=== PATIENT | female | born 1960 | race Caucasian/White ===

== ENCOUNTER 2017-07-08 20:36 | Inpatient (IN) | payer OTHER ==
[2017-07-08] VITALS (8 sets, daily range): BP systolic 185–254; BP diastolic 97–121; PULSE 59–69; RESP 20; TEMP 98.3; O2SAT 94–96
[~2017-07-08] VITALS: Ht 162.6 cm; Wt 78.5 kg
[~2017-07-08 20:36] MED LIST: HYDR-2768 PO; LORT5TAB PO; Z.0.NO CURRENT MEDS
--- NOTE | 2017-07-08 21:04 | PD ---
HPI Chief Complaint: Psychiatric Symptoms Time Seen by Provider: 20:48 Travel History International Travel<30 days: No Contact w/Intl Traveler<30days: No History of Present Illness HPI This is a 57-year-old female who presents to the emergency department under a Gudino act because she hasn't been taking care of herself. Her roommate says she 's not been getting out of bed, not leaving her room and not eating or drinking for the past month. Patient is unable to provide much history. PFSH Past Medical History Asthma: Yes Diminished Hearing: No Hypertension: Yes Menopausal: Yes Past Surgical History Other Surgery: Yes (LEFT FOOT GROWTH, LEFT AXILLA CYST) Social History Alcohol Use: No Tobacco Use: Yes (1.5 PPD) Substance Use: No Allergies-Medications (Allergen,Severity, Reaction): Coded Allergies: penicillin G (Unverified Allergy, Severe, HIVES, 07/08/17) Reported Meds & Prescriptions Reported Meds & Active Scripts Active Lortab 5/500 (Acetaminophen/Hydrocodone Bitart) 5 Mg/500 Mg Tab 1-2 Tab PO Q6HPRN Hctz (Hydrochlorothiazide) 25 Mg Tab 25 Mg PO DAILY Lortab 5/500 (Acetaminophen/Hydrocodone Bitart) 5 Mg/500 Mg Tab 1 Tab PO Q6HPRN FOR PAIN Reported No Current Meds (Miscellaneous Medication) Misc Review of Systems ROS Limitations: Altered Mental Status Physical Exam Narrative GENERAL: Disheveled SKIN: Dry with skin tenting, small area of focal erythema on the distal left tibia HEAD: Atraumatic. Normocephalic. EYES: Pupils equal and round. No injection or drainage. ENT: Moist mucous membranes NECK: Trachea midline. CARDIOVASCULAR: Regular rate and rhythm. No murmur appreciated. 2+ pitting edema of the left lower extremity. Left calf is more swollen than the right. RESPIRATORY: Clear to auscultation. Breath sounds equal bilaterally. GASTROINTESTINAL: Abdomen soft, non-tender, nondistended. MUSCULOSKELETAL: No obvious deformities. NEUROLOGICAL: Oriented to person but not place or time. No obvious cranial nerve deficits. Loss of left medial visual field and right temporal visual field. 4+/5 strength in both legs, 5/5 strength bilateral upper extremities, no ataxia PSYCHIATRIC: Appropriate mood and affect; insight and judgment normal. Data Data Last Documented VS Vital Signs Date Time Temp Pulse Resp B/P (MAP) Pulse Ox O2 Delivery O2 Flow Rate FiO2 07/08/17 22:25 63 20 245/108 (153) 96 07/08/17 21:15 98.3 Orders Orders Complete Blood Count With Diff (07/08/17 20:50) Comprehensive Metabolic Panel (07/08/17 20:50) ^ Insert Iv (07/08/17 20:50) Drug Screen, Random Urine (07/08/17 20:50) Alcohol (Ethanol) (07/08/17 20:50) Ct Brain W/O Iv Contrast(Rout) (07/08/17 ) Electrocardiogram (07/08/17 ) Creatine Kinase (Cpk) (07/08/17 21:08) Us Leg Venous Doppler (07/08/17 ) Urinalysis - C+S If Indicated (07/08/17 21:13) Cath For Specimen (07/08/17 21:13) Labetalol Inj (Trandate Inj) (07/08/17 22:00) Admit Order (Ed Use Only) (07/08/17 22:31) Labs Laboratory Tests Test 07/08/17 21:00 07/08/17 21:45 White Blood Count 8.7 TH/MM3 Red Blood Count 5.39 MIL/MM3 Hemoglobin 14.8 GM/DL Hematocrit 44.6 % Mean Corpuscular Volume 82.9 FL Mean Corpuscular Hemoglobin 27.5 PG Mean Corpuscular Hemoglobin Concent 33.1 % Red Cell Distribution Width 13.3 % Platelet Count 353 TH/MM3 Mean Platelet Volume 7.2 FL Neutrophils (%) (Auto) 47.2 % Lymphocytes (%) (Auto) 39.8 % Monocytes (%) (Auto) 8.8 % Eosinophils (%) (Auto) 3.4 % Basophils (%) (Auto) 0.8 % Neutrophils # (Auto) 4.1 TH/MM3 Lymphocytes # (Auto) 3.5 TH/MM3 Monocytes # (Auto) 0.8 TH/MM3 Eosinophils # (Auto) 0.3 TH/MM3 Basophils # (Auto) 0.1 TH/MM3 CBC Comment DIFF FINAL Differential Comment Blood Urea Nitrogen 18 MG/DL Creatinine 1.12 MG/DL Random Glucose 90 MG/DL Total Protein 8.0 GM/DL Albumin 3.3 GM/DL Calcium Level 9.8 MG/DL Alkaline Phosphatase 102 U/L Aspartate Amino Transf (AST/SGOT) 19 U/L Alanine Aminotransferase (ALT/SGPT) 17 U/L Total Bilirubin 0.5 MG/DL Sodium Level 142 MEQ/L Potassium Level 3.8 MEQ/L Chloride Level 108 MEQ/L Carbon Dioxide Level 26.4 MEQ/L Anion Gap 8 MEQ/L Estimat Glomerular Filtration Rate 50 ML/MIN Ethyl Alcohol Level LESS THAN 3 MG/DL Urine Opiates Screen NEG Urine Barbiturates Screen NEG Urine Amphetamines Screen NEG Urine Benzodiazepines Screen NEG Urine Cocaine Screen NEG Urine Cannabinoids Screen NEG MDM Medical Decision Making Medical Screen Exam Complete: Yes Emergency Medical Condition: Yes Interpretation(s) Febrile, no tachycardia, hypertensive No leukocytosis Electrolytes are reassuring Urine drug screen is negative Alcohol is negative Last 24 hours Impressions Lower Extremity Ultrasound 07/08/17 0000 Signed Impressions: Service Date/Time: Saturday, July 08, 2017 21:24 - CONCLUSION: Negative exam with no evidence of deep venous thrombosis. Zander Lucas MD Head CT 07/08/17 0000 Signed Impressions: Service Date/Time: Saturday, July 08, 2017 21:17 - CONCLUSION: 1. Low attenuation edema involving the left occipital lobe and deep white matter of the left temporal and parietal lobes is consistent with subacute infarction. 2. No acute hemorrhage. 3. Old lacunar infarcts in right basal ganglia. Zander Lucas MD Differential Diagnosis Ischemic stroke, hemorrhagic stroke, electrolyte abnormality, urinary tract infection, substance intoxication Narrative Course This is a 57-year-old female who presents to the emergency department with confusion. She also has a focal visual field loss. She is placed on a monitor and an IV was established. Labs are obtained which were reassuring. Patient has evidence of edema and a subacute infarct in the occipital and parietal lobe on the left consistent with her visual field deficit. Patient's Gudino act was lifted as it is inappropriate and she presents with a medical issue. Patient Will be admitted for stroke evaluation. She is also quite hypertensive and was given IV labetalol the emergency department. Physician Communication Physician Communication Discussed with Dr. Winchester Diagnosis Primary Impression: Stroke Qualified Codes: I63.9 - Cerebral infarction, unspecified Additional Impression: Hypertensive urgency Admitting Information Admitting Physician Requests: Admit Brionna Roper MD Jul 08, 2017 21:03
[2017-07-08 21:16] LABS: AUTOMATED NEUTROPHIL # 4.1 TH/MM3 (1.8-7.7); BASOPHIL # 0.1 TH/MM3 (0-0.2); BASOPHIL % 0.8 % (0.0-2.0); EOSINOPHIL # 0.3 TH/MM3 (0-0.4); EOSINOPHIL % 3.4 % (0.0-4.0); HEMATOCRIT 44.6 % (35.0-46.0); HEMO FLAGS DIFF FINAL; LYMPH % 39.8 % (9.0-44.0); LYMPHOCYTE # 3.5 TH/MM3 (1.0-4.8); MEAN CELL VOLUME 82.9 FL (80.0-100.0); MEAN CORPUSCULAR HEMOGLOBIN 27.5 PG (27.0-34.0); MEAN CORPUSCULAR HGB CONC 33.1 % (32.0-36.0); MONO % 8.8 % (0.0-8.0); NEUT % 47.2 % (16.0-70.0); PLATELET COUNT 353 TH/MM3 (150-450); RED BLOOD COUNT 5.39 MIL/MM3 (4.00-5.30); RED CELL DISTRIBUTION WIDTH 13.3 % (11.6-17.2); WHITE BLOOD COUNT 8.7 TH/MM3 (4.0-11.0)
[2017-07-08 21:31] LABS: ALT (GPT) 17 U/L (10-53); ANION GAP 8 MEQ/L (5-15); AST (GOT) 19 U/L (15-37); BICARBONATE 26.4 MEQ/L (21.0-32.0); BLOOD UREA NITROGEN 18 MG/DL (7-18); CHLORIDE 108 MEQ/L (98-107); GLOMERULAR FILTRATION RATE 50 ML/MIN (>89); POTASSIUM 3.8 MEQ/L (3.5-5.1); SODIUM (NA) 142 MEQ/L (136-145)
[2017-07-08 21:34] LABS: ALKALINE PHOSPHATASE 102 U/L (45-117); TOTAL BILIRUBIN ADULT 0.5 MG/DL (0.2-1.0)
--- NOTE | 2017-07-08 21:38 | RADRPT ---
EXAM DATE/TIME: 07/08/2017 21:17 [facility] COMPARISON: No previous studies available for comparison. INDICATIONS : Altered mental status. RADIATION DOSE: 28.70 CTDIvol (mGy) MEDICAL HISTORY : Hypertension. SURGICAL HISTORY : None. ENCOUNTER: Initial ACUITY: 1 day PAIN SCALE: Non-responsive LOCATION: cranial TECHNIQUE: Multiple contiguous axial images were obtained of the head. Using automated exposure control and adj ustment of the mA and/or kV according to patient size, radiation dose was kept as low as reasonably a chievable to obtain optimal diagnostic quality images. DICOM format image data is available electro nically for review and comparison. FINDINGS: Low density edema is noted involving the left occipital lobe and deep white matter of the left t emporal and parietal lobes. There is a small old lacunar infarcts in the right basal ganglia. There i s mild atrophic change with sulcal and ventricular prominence. There is mild cerebellar atrophy. The posterior fossa and brainstem are otherwise unremarkable. Bone windows demonstrate no acute abnormali ty. CONCLUSION: 1. Low attenuation edema involving the left occipital lobe and deep white matter of the left temporal and parietal lobes is consistent with subacute infarction. 2. No acute hemorrhage. 3. Old lacunar infarcts in right basal ganglia. Zander Lucas MD on July 08, 2017 at 21:28 Board Certified Radiologist. This report was verified electronically.
--- NOTE | 2017-07-08 21:47 | RADRPT ---
EXAM DATE/TIME: 07/08/2017 21:24 [facility] COMPARISON: No previous studies available for comparison. INDICATIONS : Left leg redness. MEDICAL HISTORY : Hypertension. Asthma. SURGICAL HISTORY : Left foot growth. Left axillary cyst removed. ENCOUNTER: Initial ACUITY: 1 day PAIN SCORE: 1/10 LOCATION: Left leg. TECHNIQUE: Venous ultrasound of the leg was performed from the inguinal ligament to the proximal calf. Real[place] e, color Doppler and spectral tracing, compression and augmentation techniques were used. FINDINGS: There is normal compressibility of the deep venous system from the inguinal region to the proximal ca lf. No echogenic clot is seen in the lumen of the common femoral, femoral, popliteal, and posterior tibial veins. There is a normal response of the venous system to proximal and distal augmentation an d respiration. CONCLUSION: Negative exam with no evidence of deep venous thrombosis. Zander Lucas MD on July 08, 2017 at 21:45 Board Certified Radiologist. This report was verified electronically.
[2017-07-08 21:49] LABS: ALCOHOL LESS THAN 3 MG/DL (0-5)
[2017-07-08] MEDS ORDERED: LABETALOL HCL 100 MG/20 ML VIAL IV PUSH ONE (22:00)
[2017-07-08 22:59] LABS: BLOOD, URINE NEG (NEG); GLUCOSE,URINE NEG (NEG); KETONE, URINE NEG (NEG); MUCUS URINE FEW /lpf (OCC); NITRITE,URINE NEG (NEG); SQUAMOUS EPITHELIAL CELL URINE <1 /hpf (0-5); URINE COLOR YELLOW (YELLW/STRAW)
[2017-07-08 23:00] LABS: COMMENT (UR) CATH-CULT NOT IND; CULTURE IF INDICATED CATH CULTURE NOT IND
[2017-07-08] MEDS ORDERED: hydrALAZINE HCL 20 MG/ML VIAL IV PUSH ONE (23:00)
[2017-07-08] MEDS ORDERED: SODIUM CHLOR 0.9% 1000 ML INJ 1,000 ML IV SCH (23:33)
[2017-07-08] MEDS ORDERED: ENALAPRILAT 1.25 MG/ML VIAL IV PRN (23:45)
[2017-07-08] MEDS: HEPARIN SODIUM - SQ 10,000 UNITS/ML VIAL SQ SCH (23:45)
[2017-07-08] MEDS ORDERED: GLUCAGON 1 MG/ML VIAL OTHER PRN (23:45)
[2017-07-08] MEDS ORDERED: DEXTROSE 50% IN WATER 50 ML VIAL(D50) IV PUSH PRN (23:45)
[2017-07-09] VITALS (27 sets, daily range): BP systolic 165–198; BP diastolic 74–100; PULSE 64–85; RESP 16–20; TEMP 97.3–98.5; O2SAT 93–98
[2017-07-09] MEDS ORDERED: hydrALAZINE HCL 20 MG/ML VIAL IV PUSH ONE (00:15)
--- NOTE | 2017-07-09 01:23 | HHI.HP ---
HPI Service [facility] Primary Care Physician Unknown Admission Diagnosis stroke, hypertensive urgency Diagnoses: Chief Complaint: Brought under Gudino act, lack caring for herself Travel History International Travel<30 Days: No Contact w/Intl Traveler <30 Da: No Traveled to Known Affected Are: No History of Present Illness 57 years old female presented to the ED under Gudino act after she hasn't been taking care of herself, her roommate reported that the patient has not been getting out of bed not leaving her room not eating or drinking for the past month, patient was able to recognize her name and the place but not the time and in general she is very poor historian and not able to maintain any other information or history from her. She looks comfortable she denied any pain. EKG reviewed showed normal sinus rhythm. Most of the information obtained from ED document Review of Systems ROS Limitations: Poor Historian Past Family Social History Past Medical History Asthma Hypertension Left foot growth/left axilla cyst Past Surgical History As above Allergies: Coded Allergies: penicillin G (Unverified Allergy, Severe, HIVES, 07/08/17) Family History Unobtainable Social History The ED documents 1-1/2 act per day no illicit drug or alcohol abuse Physical Exam Vital Signs Vital Signs Date Time Temp Pulse Resp B/P (MAP) Pulse Ox O2 Delivery O2 Flow Rate FiO2 07/09/17 00:57 66 20 198/86 (123) 97 07/09/17 00:26 69 20 182/86 (118) 97 07/08/17 23:57 65 20 219/97 (137) 07/08/17 23:20 61 20 215/98 (137) 96 07/08/17 22:51 63 20 230/121 (157) 95 07/08/17 22:39 59 20 218/97 (137) 96 07/08/17 22:25 63 20 245/108 (153) 96 07/08/17 21:47 254/114 (160) 07/08/17 21:15 98.3 69 20 185/116 (139) 94 07/08/17 21:12 98.3 69 20 185/116 (139) 94 Physical Exam GENERAL: This is a well-nourished, well-developed patient, in no apparent distress. SKIN: No rashes, ecchymoses or lesions. Cool and dry. HEAD: Atraumatic. Normocephalic. No temporal or scalp tenderness. EYES: Pupils equal round and reactive. Extraocular motions intact. No scleral icterus. No injection or drainage. ENT: Nose without bleeding, purulent drainage or septal hematoma. Throat without erythema, tonsillar hypertrophy or exudate. Uvula midline. Airway patent. NECK: Trachea midline. No JVD or lymphadenopathy. Supple, nontender, no meningeal signs. CARDIOVASCULAR: Regular rate and rhythm without murmurs, gallops, or rubs. RESPIRATORY: Clear to auscultation. Breath sounds equal bilaterally. No wheezes , rales, or rhonchi. GASTROINTESTINAL: Abdomen soft, non-tender, nondistended. No hepato-splenomegaly , or palpable masses. No guarding. MUSCULOSKELETAL: Extremities without clubbing, cyanosis, or edema. No joint tenderness, effusion, or edema noted. No calf tenderness. Negative Homans sign bilaterally. NEUROLOGICAL: Awake and alert. Cranial nerves II through XII intact. Motor strength 4 out of 5 in all extremities and sensory grossly within normal limits. Normal speech. Laboratory Laboratory Tests Test 07/08/17 21:00 07/08/17 21:45 White Blood Count 8.7 Red Blood Count 5.39 Hemoglobin 14.8 Hematocrit 44.6 Mean Corpuscular Volume 82.9 Mean Corpuscular Hemoglobin 27.5 Mean Corpuscular Hemoglobin Concent 33.1 Red Cell Distribution Width 13.3 Platelet Count 353 Mean Platelet Volume 7.2 Neutrophils (%) (Auto) 47.2 Lymphocytes (%) (Auto) 39.8 Monocytes (%) (Auto) 8.8 Eosinophils (%) (Auto) 3.4 Basophils (%) (Auto) 0.8 Neutrophils # (Auto) 4.1 Lymphocytes # (Auto) 3.5 Monocytes # (Auto) 0.8 Eosinophils # (Auto) 0.3 Basophils # (Auto) 0.1 CBC Comment DIFF FINAL Differential Comment Blood Urea Nitrogen 18 Creatinine 1.12 Random Glucose 90 Total Protein 8.0 Albumin 3.3 Calcium Level 9.8 Alkaline Phosphatase 102 Aspartate Amino Transf (AST/SGOT) 19 Alanine Aminotransferase (ALT/SGPT) 17 Total Bilirubin 0.5 Sodium Level 142 Potassium Level 3.8 Chloride Level 108 Carbon Dioxide Level 26.4 Anion Gap 8 Estimat Glomerular Filtration Rate 50 Total Creatine Kinase 39 Ethyl Alcohol Level LESS THAN 3 Urine Color YELLOW Urine Turbidity CLEAR Urine pH 7.0 Urine Specific [place] 1.017 Urine Protein TRACE Urine Glucose (UA) NEG Urine Ketones NEG Urine Occult Blood NEG Urine Nitrite NEG Urine Bilirubin NEG Urine Urobilinogen LESS THAN 2.0 Urine Leukocyte Esterase TRACE Urine RBC 1 Urine WBC 6 Urine Squamous Epithelial Cells <1 Urine Mucus FEW Microscopic Urinalysis Comment CATH-CULT NOT IND Urine Opiates Screen NEG Urine Barbiturates Screen NEG Urine Amphetamines Screen NEG Urine Benzodiazepines Screen NEG Urine Cocaine Screen NEG Urine Cannabinoids Screen NEG Result Diagram: 07/08/17 2100 07/08/17 2100 Imaging Last Impressions Lower Extremity Ultrasound 07/08/17 0000 Signed Impressions: Service Date/Time: Saturday, July 08, 2017 21:24 - CONCLUSION: Negative exam with no evidence of deep venous thrombosis. Zander Lucas MD Head CT 07/08/17 0000 Signed Impressions: Service Date/Time: Saturday, July 08, 2017 21:17 - CONCLUSION: 1. Low attenuation edema involving the left occipital lobe and deep white matter of the left temporal and parietal lobes is consistent with subacute infarction. 2. No acute hemorrhage. 3. Old lacunar infarcts in right basal ganglia. Zander Lucas MD Capalexi VTE Risk Assessment Caprini VTE Risk Assessment: Mod/High Risk (score >= 2) Caprini Risk Assessment Model Point Value = 1 Point Value = 2 Point Value = 3 Point Value = 5 Age 41-60 Minor surgery BMI > 25 kg/m2 Swollen legs Varicose veins or History of unexplained or recurrent spontaneous Oral contraceptives or hormone replacement Sepsis (< 1 month) Serious lung disease, including pneumonia (< 1 month) Abnormal pulmonary function Acute myocardial infarction Congestive heart failure (< 1 month) History of inflammatory bowel disease Medical patient at bed rest Age 61-74 Arthroscopic surgery Major open surgery (> 45 min) Laparoscopic surgery (> 45 min) Malignancy Confined to bed (> 72 hours) Immobilizing plaster cast Central venous access Age >= 75 History of VTE Family history of VTE Factor V Leiden Prothrombin [id number] Lupus anticoagulant Anticardiolipin antibodies Elevated serum homocysteine Heparin-induced thrombocytopenia Other congenital or acquired thrombophilia Stroke (< 1 month) Elective arthroplasty Hip, pelvis, or leg fracture Acute spinal cord injury (< 1 month) Prophylaxis Regimen Total Risk Factor Score Risk Level Prophylaxis Regimen 0-1 Low Early ambulation 2 Moderate Order ONE of the following: *Sequential Compression Device (SCD) *Heparin 5000 units SQ BID 3-4 Higher Order ONE of the following medications: *Heparin 5000 units SQ TID *Enoxaparin/Lovenox 40 mg SQ daily (WT < 150 kg, CrCl > 30 mL/min) *Enoxaparin/Lovenox 30 mg SQ daily (WT < 150 kg, CrCl > 10-29 mL/min) *Enoxaparin/Lovenox 30 mg SQ BID (WT < 150 kg, CrCl > 30 mL/min) AND/OR *Sequential Compression Device (SCD) 5 or more Highest Order ONE of the following medications: *Heparin 5000 units SQ TID (Preferred with Epidurals) *Enoxaparin/Lovenox 40 mg SQ daily (WT < 150 kg, CrCl > 30 mL/min) *Enoxaparin/Lovenox 30 mg SQ daily (WT < 150 kg, CrCl > 10-29 mL/min) *Enoxaparin/Lovenox 30 mg SQ BID (WT < 150 kg, CrCl > 30 mL/min) AND *Sequential Compression Device (SCD) Assessment and Plan Assessment and Plan 57 years old female presented with Severe hypertensive emergency Change in mental status rule out stroke versus metabolic encephalopathy H/O ischemic stroke in the past Elevated creatinine DANA versus CKD History of hypertension DVT prophylaxis Plan: Admit for observation under telemetry Initiate stroke protocol, O2 to keep O2 sat above 90% Patient received labetalol and hydralazine in ED, I will give a stat hydralazine dose again blood pressure still end-systolic 90, hydralazine, and the labral when necessary, hold on beta naveen due to heart rate in the 60, goal systolic around 170 over the next 24 hours Carotid ultrasound bilaterally, 2-D echo, consult neurology, to fair MRI/MRA to the neurologist FLP in a.m., hemoglobin A1c SCD with heparin for DVT prophylaxis Discussed Condition With ED physician Verónica Winchester MD Jul 09, 2017 01:23
[2017-07-09] MEDS ORDERED: SKIN PROTECTANT PASTE 57 GM TUBE TOPICAL ONE (02:15)
[2017-07-09] MEDS: INSULIN ASPART SUPPLEMENTAL SCALE SQ SCH ×4 (05:44→20:44)
[2017-07-09] MEDS: HEPARIN SODIUM - SQ 10,000 UNITS/ML VIAL SQ SCH ×3 (09:31→23:40)
[2017-07-09 09:38] LABS: HDL CHOLESTEROL 33.2 MG/DL (40.0-60.0); LDL CHOLESTEROL 218 MG/DL (0-99)
--- NOTE | 2017-07-09 10:28 | HHI.PR ---
Subjective Remarks Follow-up hypertensive emergency/metabolic encephalopathy/acute mood disorder/ subacute infarct in the left occipital lobe 07/09/17-patient seen and examined, alert and oriented 1, confused but pleasant Objective Vitals Vital Signs Date Time Temp Pulse Resp B/P (MAP) Pulse Ox O2 Delivery O2 Flow Rate FiO2 07/09/17 10:15 69 07/09/17 09:43 78 07/09/17 08:15 77 07/09/17 07:41 98.5 68 18 188/97 (127) 95 07/09/17 07:41 78 07/09/17 06:00 78 07/09/17 05:00 76 07/09/17 04:52 77 16 170/88 (115) 97 07/09/17 04:00 76 07/09/17 03:04 98.3 85 20 179/93 (121) 96 07/09/17 03:00 79 07/09/17 01:44 73 20 165/74 (104) 97 07/09/17 01:29 76 20 165/ 98 07/09/17 00:57 66 20 198/86 (123) 97 07/09/17 00:26 69 20 182/86 (118) 97 07/08/17 23:57 65 20 219/97 (137) 07/08/17 23:20 61 20 215/98 (137) 96 07/08/17 22:51 63 20 230/121 (157) 95 07/08/17 22:39 59 20 218/97 (137) 96 07/08/17 22:25 63 20 245/108 (153) 96 07/08/17 21:47 254/114 (160) 07/08/17 21:15 98.3 69 20 185/116 (139) 94 07/08/17 21:12 98.3 69 20 185/116 (139) 94 I/O 07/08/17 07/08/17 07/08/17 07/09/17 07/09/17 07/09/17 07:00 15:00 23:00 07:00 15:00 23:00 Intake Total 381 ml Balance 381 ml Intake IV Total 381 ml # Voids 2 Result Diagram: 07/08/17 2100 07/08/17 2100 Imaging Last Impressions Lower Extremity Ultrasound 07/08/17 0000 Signed Impressions: Service Date/Time: [place], July 08, 2017 21:24 - CONCLUSION: Negative exam with no evidence of deep venous thrombosis. Zander Lucas MD Head CT 07/08/17 0000 Signed Impressions: Service Date/Time: Saturday, July 08, 2017 21:17 - CONCLUSION: 1. Low attenuation edema involving the left occipital lobe and deep white matter of the left temporal and parietal lobes is consistent with subacute infarction. 2. No acute hemorrhage. 3. Old lacunar infarcts in right basal ganglia. Zander Lucas MD Objective Remarks GENERAL: NAD SKIN: Warm and dry. HEAD: Normocephalic. EYES: No scleral icterus. No injection or drainage. NECK: Supple, trachea midline. No JVD or lymphadenopathy. CARDIOVASCULAR: Regular rate and rhythm without murmurs, gallops, or rubs. RESPIRATORY: Breath sounds equal bilaterally. No accessory muscle use. GASTROINTESTINAL: Abdomen soft, non-tender, nondistended. MUSCULOSKELETAL: No cyanosis, or edema. BACK: Nontender without obvious deformity. No CVA tenderness. A/P Problem List: (1) Stroke ICD Code: I63.9 - Cerebral infarction, unspecified Status: Acute (2) Hypertensive urgency ICD Code: I16.0 - Hypertensive urgency Status: Acute (3) Acute adjustment disorder with depressed mood ICD Code: F43.21 - Adjustment disorder with depressed mood (4) Respiratory failure ICD Code: J96.90 - Respiratory failure, unspecified, unspecified whether with hypoxia or hypercapnia Assessment and Plan 57-year-old female with Toxic metabolic encephalopathy Head CT with finding of subacute infarct in left occipital lobe Check EEG and monitor ammonia level Subacute infarct in the left occipital lobe Treated per stroke protocol Neuro consultation pending Treated with aspirin, Lipitor NIHSS, neuro check, monitor on telemetry Now permissive hypertension, IV Vasotec for SBP> to [address] noted and review with finding of subacute infarct in the left occipital lobe Carotid ultrasound pending Check brain MRI/MRA as well as EEG PT/OT consultation Check A1c, lipid profile Hypertensive emergency Secondary to subacute infarct, will allow for permissive hypertension Treat for SBP> 220 Acute mood disorder Psychiatry consultation DVT prophylaxis: Bilateral SCDs Problem Qualifiers (1) Stroke: Qualified Codes: I63.9 - Cerebral infarction, unspecified Kirill Garcia MD Jul 09, 2017 10:28
[2017-07-09] MEDS ORDERED: METOPROLOL TARTRATE 50 MG TAB PO SCH (10:30)
[2017-07-09] MEDS ORDERED: RESP: ALBUTEROL 2.5 MG/IPRATROPIUM 0.5 MG NEB (PRN) NEB (10:30)
[2017-07-09 11:07] LABS: HEMOGLOBIN A1a 1.1 %; HEMOGLOBIN A1b 1.4 %; HEMOGLOBIN Ao 85.2 %; HEMOGLOBIN F 0.2 %; HEMOGLOBIN LA1C 2.1 %; HEMOGLOBIN P3 4.1 %
--- NOTE | 2017-07-09 11:16 | HHI.PR ---
Addendum to Inpatient Note Addendum Reason: Additional Documentation Additional Information Suspected LLE cellulitis Start Levaquin 250mg IV daily Kirill Garcia MD Jul 09, 2017 11:16
[2017-07-09] MEDS: LABETALOL HCL 100 MG/20 ML VIAL IV PRN (12:23)
[2017-07-09] MEDS: NICOTINE 14 MG/24 HR PATCH T-DERMAL SCH (12:23)
--- NOTE | 2017-07-09 12:29 | MB ---
cc: TAMI TEMPLE M.D. DATE OF CONSULTATION 07/09/2017 DATE OF 1960 AGE [age] years old REASON FOR CONSULTATION Stroke. HISTORY OF PRESENT ILLNESS The patient is a 57-year-old woman. The history is taken from the chart. She is a poor historian. She was Gudino Acted because of inability to care for herself. Roommate reports she was not getting out of bed, not eating or drinking over the last month or so, confused. PAST MEDICAL HISTORY 1. History of asthma. 2. Hypertension. 3. Left foot growth. ALLERGY PENICILLIN. FAMILY HISTORY Unobtainable. PHYSICAL EXAMINATION VITAL SIGNS: Temperature is 98.5, pulse 69, respiratory rate 18, blood pressure 188/97. NEUROLOGICAL EXAMINATION: She awakens. Her speech seems to be intact. She follows simple commands. Her pupils are reactive. She can count fingers. Difficult to assess her visual bates; she does not follow the concept. She seems to move everything equally. There may be a slightly decreased residential door unit installer on the left compared to the right. She does not understand the concept to test for leg lag but she lifts both legs together. DTRs are 2+. Toes she withdraws. She does not follow cerebellar. Gait is withheld. IMAGING STUDIES CT showed a low attenuated area in the left occipital and left temporoparietal region, possible subacute infarct. There is also old right basal ganglionic infarct. IMPRESSION Possible stroke. RECOMMENDATIONS Recommend starting her on aspirin, blood pressure control, a statin. We will get an EEG, echo, carotid ultrasound, MRI and MRA, PT, OT, speech therapy, rehab consult and SCDs, DVT and Lovenox DVT prophylaxis. Depending on findings, further recommendations. MD VIKA Patel/STEWART /11:34 AM /12:19 PM
[2017-07-09] MEDS: LEVOFLOXACIN 250 MG PREMIX INJ 50 ML IV SCH (13:24)
--- NOTE | 2017-07-09 18:30 | RADRPT ---
EXAM DATE/TIME: 07/09/2017 17:50 [facility] COMPARISON: No previous studies available for comparison. INDICATIONS : Cerebrovascular accident. MEDICAL HISTORY : Hypertension. Asthma. SURGICAL HISTORY : None. ENCOUNTER: Initial ACUITY: 1 day PAIN SCORE: 0/10 LOCATION: Bilateral neck PEAK SYSTOLIC VELOCITIES (cm/sec): ICA/CCA RATIO: Right: 2.3 Left: 1.8 ICA: Right: 156 Left: 119 CCA: Right: 68 Left: 65 ECA: Right: 43 Left: 130 VERTEBRAL: Right: 91 antegrade Left: 88 antegrade Elevated flow velocities and ICA/CCA ratios have been found to correlate with increased degrees of vessel stenosis, calculated as percentage of diameter relative to a normal segment of distal ICA/CCA FINDINGS: RIGHT CAROTID: There is elevated ratios in the right carotid normal velocities and internal carotid. LEFT CAROTID: Borderline elevated ratio is present on the left with mildly elevated velocities. VERTEBRAL ARTERIES: Antegrade flow is seen in both vertebral arteries. MISCELLANEOUS: None. CONCLUSION: Abnormal carotid Doppler. Scattered calcific plaque is evident. MR angiography or CT angiography wo uld be of benefit. Luis Hua MD FACR on July 09, 2017 at 18:27 Board Certified Radiologist. This report was verified electronically.
--- NOTE | 2017-07-09 20:06 | EKG ---
Date Performed: 07/08/2017 Time Performed: 21:51:38 PTAGE: 57 years EKG: Sinus rhythm NORMAL ECG NO PREVIOUS TRACING DOCTOR: Erin Arshad Interpretating Date/Time 07/09/2017 20:03:45
[2017-07-09] MEDS: ATORVASTATIN 10 MG TAB PO SCH (20:43)
[2017-07-10] VITALS (22 sets, daily range): BP systolic 183–231; BP diastolic 95–120; PULSE 58–84; RESP 18; TEMP 97.7–98.1; O2SAT 93–98
[2017-07-10] MEDS: INSULIN ASPART SUPPLEMENTAL SCALE SQ SCH ×4 (06:14→21:00)
[2017-07-10] MEDS: HEPARIN SODIUM - SQ 10,000 UNITS/ML VIAL SQ SCH ×3 (06:15→23:27)
[2017-07-10 07:15] LABS: HDL CHOLESTEROL 37.9 MG/DL (40.0-60.0)
[2017-07-10] MEDS: ASPIRIN EC 81 MG TABEC PO SCH (08:29)
[2017-07-10] MEDS: LABETALOL HCL 100 MG/20 ML VIAL IV PRN (08:29)
[2017-07-10] MEDS: NICOTINE 14 MG/24 HR PATCH T-DERMAL SCH (08:31)
[2017-07-10] MEDS ORDERED: REMOVE OLD PATCH T-DERMAL SCH (09:00)
--- NOTE | 2017-07-10 11:03 | HHI.PR ---
Subjective Remarks Follow-up hypertensive emergency/metabolic encephalopathy/acute mood disorder/ subacute infarct in the left occipital lobe 07/09/17-patient seen and examined, alert and oriented 1, confused but pleasant 07/10/17-patient seen and examined, alert and oriented 2, afebrile. BP. Denies any complication with by mouth intake this morning Objective Vitals Vital Signs Date Time Temp Pulse Resp B/P (MAP) Pulse Ox O2 Delivery O2 Flow Rate FiO2 07/10/17 08:00 97.7 69 18 231/120 (157) 96 07/10/17 07:00 64 07/10/17 06:00 68 07/10/17 05:00 64 07/10/17 04:00 98.0 66 18 183/95 (124) 98 07/10/17 04:00 69 07/10/17 03:00 58 07/10/17 02:00 68 07/10/17 01:00 64 07/10/17 00:00 63 07/10/17 00:00 97.7 76 18 188/97 (127) 93 07/09/17 23:00 66 07/09/17 22:00 72 07/09/17 21:00 68 07/09/17 20:00 71 07/09/17 20:00 97.3 73 18 189/95 (126) 97 07/09/17 18:08 71 07/09/17 17:17 67 07/09/17 16:11 69 07/09/17 15:12 73 07/09/17 15:12 98.1 73 18 174/89 (117) 96 07/09/17 14:41 71 07/09/17 13:06 65 07/09/17 12:08 70 07/09/17 11:25 64 07/09/17 11:25 98.3 64 18 178/100 (126) 97 I/O 07/09/17 07/09/17 07/09/17 07/10/17 07/10/17 07/10/17 07:00 15:00 23:00 07:00 15:00 23:00 Intake Total 381 ml 720 ml Output Total 520 ml Balance 381 ml 720 ml -520 ml Intake Oral 720 ml IV Total 381 ml Output Urine Total 520 ml # Voids 2 3 1 Result Diagram: 07/08/17209907/08/17 2100 Imaging Last Impressions Carotid Artery Ultrasound 07/09/17 0000 Signed Impressions: Service Date/Time: Sunday, July 09, 2017 17:50 - CONCLUSION: Abnormal carotid Doppler. Scattered calcific plaque is evident. MR angiography or CT angiography would be of benefit. Luis Hua MD FACR Lower Extremity Ultrasound 07/08/17 0000 Signed Impressions: Service Date/Time: Saturday, July 08, 2017 21:24 - CONCLUSION: Negative exam with no evidence of deep venous thrombosis. Zander Lucas MD Head CT 07/08/17 0000 Signed Impressions: Service Date/Time: Saturday, July 08, 2017 21:17 - CONCLUSION: 1. Low attenuation edema involving the left occipital lobe and deep white matter of the left temporal and parietal lobes is consistent with subacute infarction. 2. No acute hemorrhage. 3. Old lacunar infarcts in right basal ganglia. Zander Lucas MD Objective Remarks GENERAL: NAD SKIN: Warm and dry. HEAD: Normocephalic. EYES: No scleral icterus. No injection or drainage. NECK: Supple, trachea midline. No JVD or lymphadenopathy. CARDIOVASCULAR: Regular rate and rhythm without murmurs, gallops, or rubs. RESPIRATORY: Breath sounds equal bilaterally. No accessory muscle use. GASTROINTESTINAL: Abdomen soft, non-tender, nondistended. MUSCULOSKELETAL: No cyanosis, or edema. BACK: Nontender without obvious deformity. No CVA tenderness. A/P Problem List: (1) Stroke ICD Code: I63.9 - Cerebral infarction, unspecified Status: Acute (2) Hypertensive urgency ICD Code: I16.0 - Hypertensive urgency Status: Acute (3) Acute adjustment disorder with depressed mood ICD Code: F43.21 - Adjustment disorder with depressed mood (4) Respiratory failure ICD Code: J96.90 - Respiratory failure, unspecified, unspecified whether with hypoxia or hypercapnia Status: Resolved (5) Cellulitis of left leg ICD Code: L03.116 - Cellulitis of left lower limb Assessment and Plan 57-year-old female with Toxic metabolic encephalopathy-resolved Head CT with finding of subacute infarct in left occipital lobe EEG pending and monitor ammonia level 31 Subacute infarct in the left occipital lobe Treated per stroke protocol Neuro consultation appreciated Treated with aspirin, Lipitor NIHSS, neuro check, monitor on telemetry d/c permissive hypertension, IV Vasotec for SBP> to [address] noted and review with finding of subacute infarct in the left occipital lobe Carotid ultrasound noted brain MRI/MRA as well as EEG pending PT/OT consultation A1c 5.4, lipid profile 201 Hypertensive emergency Discontinue permissive hypertension Resume hydrochlorothiazide 25 mg by mouth daily Left lower extremity cellulitis Continue current IV antibiotic Acute mood disorder Psychiatry consultation pending DVT prophylaxis: Bilateral SCDs Problem Qualifiers (1) Stroke: Qualified Codes: I63.9 - Cerebral infarction, unspecified Kirill Garcia MD Jul 10, 2017 11:03
[2017-07-10] MEDS: HYDROCHLOROTHIAZIDE 25 MG TAB PO SCH (11:15)
[2017-07-10] MEDS: LEVOFLOXACIN 250 MG PREMIX INJ 50 ML IV SCH (12:11)
[2017-07-10 12:13] LABS: HEMOGLOBIN A1a 0.9 %; HEMOGLOBIN A1b 1.4 %; HEMOGLOBIN Ao 79.2 %; HEMOGLOBIN F 0.2 %; HEMOGLOBIN LA1C 2.1 %; HEMOGLOBIN P3 5.2 %
--- NOTE | 2017-07-10 13:18 | PD.PSY.CON ---
Provisional Diagnosis Admission Date Jul 08, 2017 at 22:33 [place] I. Major neurocognitive disorder [place] II. Deferred History of Present Illness Service Psychiatry Consult Requested By Reason for Consult Shahab rose Primary Care Physician Unknown HPI The patient is a 57 years old woman, without any previous psychiatric history, who presented to the ED under Shahab rose after she hasn't been taking care of herself, her roommate reported that the patient has not been getting out of bed not leaving her room not eating or drinking for the past month, patient was able to recognize her name and the place but not the time and in general she is very poor historian and not able to maintain any other information or history from her. She looks comfortable she denied any pain. EKG reviewed showed normal sinus rhythm. Most of the information obtained from ED document. Head CT with finding of subacute infarct in left occipital lobe. Patient seen today for psychiatric evaluation. Patient reports good mood, she denies depressive symptoms, she denies anhedonia, denies hopelessness, she denies helplessness, she denies suicidal and homicidal ideation, she denies visual and auditory hallucinations. However, patient seems to be confused, with delays answers, blocking thought, some poverty of speech and apathy seems to be secondary to neurocognitive disorder. Past Family Social History Coded Allergies: penicillin G (Unverified Allergy, Severe, HIVES, 07/08/17) Active Scripts Hydrocodone-Acetaminophen (Lortab 5/500) 5 Mg/500 Mg Tab, 1 - 2 TAB PO Q6HPRN, # 24 Prov:Donovan Gracia MD 02/18/11 Hydrochlorothiazide (Hctz) 25 Mg Tab, 25 MG PO DAILY, #30 2 Refills Prov:Donovan Gracia MD 02/18/11 Hydrocodone-Acetaminophen (Lortab 5/500) 5 Mg/500 Mg Tab, 1 TAB PO Q6HPRN, #30 0 Refills FOR PAIN Prov:Josafat Danielle MD 02/05/09 Reported Medications Miscellaneous (No Current Meds) Misc 02/18/11 Current Medications Medications (Trade) Dose Ordered Sig/Ant Route Start Time Stop Time Status Last Admin (Vasotec Inj) 1.25 mg Q4H PRN IV 07/08/17 23:45 07/09/17 00:25 (Trandate Inj) 10 mg Q2H PRN IV 07/08/17 23:45 07/10/17 08:29 (Lipitor) 10 mg HS PO 07/09/17 21:00 07/09/17 20:43 (NovoLOG SUPPLEMENTAL SCALE) 1 ACHS SQ 07/09/17 07:00 (D50w (Vial) Inj) 50 ml UNSCH PRN IV PUSH 07/08/17 23:45 (Glucagon Inj) 1 mg UNSCH PRN OTHER 07/08/17 23:45 (Heparin Inj) 5,000 units Q8H SQ 07/08/17 23:45 07/10/17 06:15 (Apresoline Inj) 10 mg Q4H PRN IV PUSH 07/09/17 00:15 (Duoneb Neb) 1 ampule Q2HR NEB PRN NEB 07/09/17 10:30 (Habitrol 14 Mg Patch.24 Hr) 1 patch DAILY T-DERMAL 07/09/17 11:00 07/10/17 08:31 (Ecotrin Ec) 81 mg DAILY PO 07/10/17 09:00 07/10/17 08:29 Levofloxacin/ Dextrose 50 ml @ 50 mls/hr Q24H IV 07/09/17 12:00 07/10/17 12:11 (Hydrodiuril) 25 mg DAILY PO 07/10/17 11:15 07/10/17 11:15 (Lactinex) 1 tab Q12HR PO 07/10/17 21:00 Physical Exam Vital Signs Vital Signs Date Time Temp Pulse Resp B/P (MAP) Pulse Ox O2 Delivery O2 Flow Rate FiO2 07/10/17 12:00 95 07/10/17 08:00 97.7 69 18 231/120 (157) 07/09/17 10:20 21 I/O 07/10/17 07/10/17 07/11/17 08:00 16:00 00:00 Output Total 520 ml Balance -520 ml Lab Results Test 07/09/17 21:07 07/10/17 05:12 Hemoglobin A1c 5.2 % Ammonia 31 MCMOL/L Triglycerides Level 139 MG/DL Cholesterol Level 267 MG/DL LDL Cholesterol 201 MG/DL HDL Cholesterol 37.9 MG/DL Cholesterol/HDL Ratio 7.04 RATIO Mental Status Examination Appearance woman, age appearing, [facility], superficially cooperative, pleasant Speech: Hesitant, Slow Orientation: Person, Place Memory: Impaired (describe) Thought Process: Loose Association, Thought Blocking Thought Content: Unremarkable Attention and Concentration: Abnormal Suicidal Ideation: No Homicidal Ideation: No Previous Homicide Attempts: No Judgment: WNL Affect: Good Mood: Appropriate Motor Activity: Normal gait Assessment & Plan Problem List: (1) Major neurocognitive disorder due to vascular disease, without behavioral disturbance, severe ICD Codes: F01.50 - Vascular dementia without behavioral disturbance Assessment & Plan: On psychiatric evaluation today the patient presents with confusion, answer delay, blocking thought, some poverty of speech, just partially oriented, but able to denying mood symptoms, anxiety, psychosis, suicidal and homicidal ideation. Patient is future oriented, insightful about her cognitive impairment. She denies visual and auditory hallucinations. No agitation, no aggressive behavior, no hostility, no delusions, no paranoia present. Seems to me current memory problems and thought processes slowness is most probably related with sub acute brain infarct findings. She does not meet criteria for psychiatric admission at this moment. Gudino act will be lifted. Assessment & Plan Estimated LOS: Kevin Gifford MD Jul 10, 2017 13:18
--- NOTE | 2017-07-10 16:05 | MG ---
cc: ERLIN BRAR MD Lab No: Date: 07/10/2017 Age: Sex: F Race: ELECTROENCEPHALOGRAM RECORD NUMBER [id number] DATE OF 1960 HISTORY A 57-year-old with a history of Gudino Act, really not taking care of himself. Confusion. DESCRIPTION A posterior rhythm demonstrates 4-7 Hz activity, 20-60 microvolts with bursts of high amplitude theta occurring. Myogenic artifact in the frontal channels. apiculate looking waveforms. Limited driving with photic stimulation. Single lead EKG showing sinus rhythm. INTERPRETATION Mild encephalopathy in drowsy state. Apiculate looking waveforms this may be related to psychotropic medication effect. Clinical correlation. Erlin Brar MD MG/KK /3:37 PM /3:54 PM MTDCash
--- NOTE | 2017-07-10 16:10 | ECHRPT ---
Indication: CVA/TIA CONCLUSIONS The left ventricular systolic function is normal with an estimated ejection fraction in the range of 60-65%. Mild concentric left ventricular hypertrophy. Trace to mild aortic valve regurgitation. BP: 170 / 88 HR: 78 Rhythm: Sinus MEASUREMENTS (Male / Female) Normal Values Technical Quality:Fair 2D ECHO LV Diastolic Diameter PLAX 4.6 cm 4.2 - 5.9 / 3.9 - 5.3 cm LV Systolic Diameter PLAX 2.9 cm IVS Diastolic Thickness 1.2 cm 0.6 - 1.0 / 0.6 - 0.9 cm LVPW Diastolic Thickness 1.2 cm 0.6 - 1.0 / 0.6 - 0.9 cm LV Relative Wall Thickness 0.5 RV Internal Dim ED PLAX 2.4 cm LVOT Diameter 2.1 cm LA Systolic Diameter LX 3.5 cm 3.0 - 4.0 / 2.7 - 3.8 cm LV Ejection Fraction MOD 4C 62.7 % LV Cardiac Index MOD 4C 2762.4 cm/minm LV Ejection Fraction 4C AL 63.0 % LV Cardiac Index 4C AL 2883.7 cm/minm M-MODE Aortic Root Diameter MM 2.3 cm LA Systolic Diameter MM 3.0 cm LA Ao Ratio MM 1.3 AV Cusp Separation MM 1.6 cm DOPPLER AV Peak Velocity 193.0 cm/s AV Peak Gradient 14.9 mmHg AI Peak Velocity 557.0 cm/s AI Peak Gradient 124.1 mmHg AI Pressure Half Time 522.0 ms LVOT Peak Velocity 114.0 cm/s LVOT Peak Gradient 5.2 mmHg AV Area Cont Eq pk 2.0 cm MV Area PHT 3.2 cm Mitral E Point Velocity 79.5 cm/s Mitral A Point Velocity 80.0 cm/s Mitral E to A Ratio 1.0 LV E' Lateral Velocity 10.9 cm/s Mitral E to LV E' Lateral Ratio 7.3 LV E' Septal Velocity 6.2 cm/s Mitral E to LV E' Septal Ratio 12.7 TR Peak Velocity 261.0 cm/s TR Peak Gradient 27.2 mmHg PV Peak Velocity 117.0 cm/s PV Peak Gradient 5.5 mmHg FINDINGS LEFT VENTRICLE The left ventricular systolic function is normal with an estimated ejection fraction in the range of 60-65%. Normal left ventricular size. Mild concentric left ventricular hypertrophy. No regional wall motion abnormalities are present. RIGHT VENTRICLE Normal right ventricular size and systolic function. LEFT ATRIUM The left atrial size is normal. RIGHT ATRIUM The right atrial size is normal. ATRIAL SEPTUM Normal atrial septal thickness without atrial level shunting by limited color doppler interrogation. AORTA The aortic root and proximal ascending aorta are normal in size on limited imaging. MITRAL VALVE Structurally normal mitral valve. No mitral valve stenosis or regurgitation. Mild mitral annular calcification. AORTIC VALVE Trileaflet aortic valve. Aortic valve sclerosis is present. . Trace to mild aortic valve regurgitation. TRICUSPID VALVE Structurally normal tricuspid valve. No tricuspid valve stenosis. There is trace tricuspid valve regurgitation. The estimated pulmonary arterial pressure is 37 mmHg. PULMONARY VALVE The pulmonary valve is not well visualized. VESSELS The inferior vena cava is normal in size. PERICARDIUM No pericardial effusion. Oits Calvin DO (Electronically Signed) Final Date:10 July 2017 16:09
[2017-07-10] MEDS: ATORVASTATIN 10 MG TAB PO SCH (23:27)
[2017-07-10] MEDS: LACTOBACILLUS ACIDOPHILUS TAB PO SCH (23:27)
[2017-07-11] VITALS (25 sets, daily range): BP systolic 88–195; BP diastolic 64–119; PULSE 65–92; RESP 18–20; TEMP 97.3–98.5; O2SAT 95–98
[2017-07-11] MEDS: LABETALOL HCL 100 MG/20 ML VIAL IV PRN (01:06)
[2017-07-11] MEDS: hydrALAZINE HCL 20 MG/ML VIAL IV PUSH PRN ×2 (01:07→21:30)
[2017-07-11] MEDS: INSULIN ASPART SUPPLEMENTAL SCALE SQ SCH ×3 (07:00→16:00)
[2017-07-11] MEDS: HYDROCHLOROTHIAZIDE 25 MG TAB PO SCH (10:30)
[2017-07-11] MEDS: ASPIRIN EC 81 MG TABEC PO SCH (10:31)
[2017-07-11] MEDS: LACTOBACILLUS ACIDOPHILUS TAB PO SCH ×2 (10:31→21:28)
[2017-07-11] MEDS: NICOTINE 14 MG/24 HR PATCH T-DERMAL SCH (10:32)
[2017-07-11] MEDS: HEPARIN SODIUM - SQ 10,000 UNITS/ML VIAL SQ SCH ×2 (10:33→17:13)
--- NOTE | 2017-07-11 10:56 | HHI.PR ---
Subjective Remarks Follow-up hypertensive emergency/metabolic encephalopathy/acute mood disorder/ subacute infarct in the left occipital lobe 07/09/17-patient seen and examined, alert and oriented 1, confused but pleasant 07/10/17-patient seen and examined, alert and oriented 2, afebrile. BP. Denies any complication with by mouth intake this morning 07/11/17-patient seen and examined, appear much more alert today. No acute event overnight. Objective Vitals Vital Signs Date Time Temp Pulse Resp B/P (MAP) Pulse Ox O2 Delivery O2 Flow Rate FiO2 07/11/17 06:00 76 07/11/17 05:00 68 07/11/17 04:00 98.2 75 18 88/64 (72) 95 07/11/17 04:00 74 07/11/17 03:00 66 07/11/17 02:00 68 07/11/17 01:00 72 07/11/17 00:00 98.4 86 18 195/119 (144) 98 07/11/17 00:00 72 07/10/17 23:00 82 07/10/17 22:00 80 07/10/17 21:00 84 07/10/17 20:00 76 07/10/17 20:00 98.1 74 18 201/114 (143) 98 07/10/17 18:19 98 21 07/10/17 17:00 66 07/10/17 16:00 97.7 71 18 190/99 (129) 98 07/10/17 16:00 80 07/10/17 15:00 68 07/10/17 13:00 74 07/10/17 12:00 97.9 64 18 203/117 (145) 98 07/10/17 12:00 66 07/10/17 12:00 95 07/10/17 11:00 66 I/O 07/10/17 07/10/17 07/10/17 07/11/17 07/11/17 07/11/17 06:59 14:59 22:59 06:59 14:59 22:59 Intake Total 80 ml Output Total 520 ml Balance -520 ml 80 ml Intake Oral 80 ml Output Urine Total 520 ml # Voids 1 3 Result Diagram: 07/08/17209907/08/17 2100 Imaging Last Impressions Carotid Artery Ultrasound 07/09/17 0000 Signed Impressions: Service Date/Time: Sunday, July 09, 2017 17:50 - CONCLUSION: Abnormal carotid Doppler. Scattered calcific plaque is evident. MR angiography or CT angiography would be of benefit. Luis Hua MD FACR Lower Extremity Ultrasound 07/08/17 0000 Signed Impressions: Service Date/Time: Saturday, July 08, 2017 21:24 - CONCLUSION: Negative exam with no evidence of deep venous thrombosis. Zander Lucas MD Head CT 07/08/17 0000 Signed Impressions: Service Date/Time: Saturday, July 08, 2017 21:17 - CONCLUSION: 1. Low attenuation edema involving the left occipital lobe and deep white matter of the left temporal and parietal lobes is consistent with subacute infarction. 2. No acute hemorrhage. 3. Old lacunar infarcts in right basal ganglia. Zander Lucas MD Objective Remarks GENERAL: NAD SKIN: Warm and dry. HEAD: Normocephalic. EYES: No scleral icterus. No injection or drainage. NECK: Supple, trachea midline. No JVD or lymphadenopathy. CARDIOVASCULAR: Regular rate and rhythm without murmurs, gallops, or rubs. RESPIRATORY: Breath sounds equal bilaterally. No accessory muscle use. GASTROINTESTINAL: Abdomen soft, non-tender, nondistended. MUSCULOSKELETAL: No cyanosis, or edema. BACK: Nontender without obvious deformity. No CVA tenderness. Procedures none A/P Problem List: (1) Stroke ICD Code: I63.9 - Cerebral infarction, unspecified Status: Acute (2) Hypertensive urgency ICD Code: I16.0 - Hypertensive urgency Status: Acute (3) Acute adjustment disorder with depressed mood ICD Code: F43.21 - Adjustment disorder with depressed mood (4) Respiratory failure ICD Code: J96.90 - Respiratory failure, unspecified, unspecified whether with hypoxia or hypercapnia Status: Resolved (5) Cellulitis of left leg ICD Code: L03.116 - Cellulitis of left lower limb Assessment and Plan 57-year-old female with Toxic metabolic encephalopathy-resolved Head CT with finding of subacute infarct in left occipital lobe EEG noted and review Subacute infarct in the left occipital lobe Treated per stroke protocol Neuro consultation appreciated Treated with aspirin, Lipitor NIHSS, neuro check, monitor on telemetry permissive hypertension, IV Vasotec for SBP> to [address] noted and review with finding of subacute infarct in the left occipital lobe Carotid ultrasound noted brain MRI/MRA as well as Neck MRA pending PT/OT consultation A1c 5.4, lipid profile 201 Hypertensive emergency Discontinue permissive hypertension Resume hydrochlorothiazide 25 mg by mouth daily Left lower extremity cellulitis Improving Continue current IV antibiotic Acute mood disorder Appreciate input from psychiatry who lifted Gudino act DVT prophylaxis: Bilateral SCDs Problem Qualifiers (1) Stroke: Qualified Codes: I63.9 - Cerebral infarction, unspecified Kirill Garcia MD Jul 11, 2017 10:56
[2017-07-11] MEDS: LEVOFLOXACIN 250 MG PREMIX INJ 50 ML IV SCH (15:05)
[2017-07-11] MEDS ORDERED: ATROPINE SULFATE 1 MG/10 ML SYRINGE ONE (17:37)
[2017-07-11] MEDS ORDERED: EPINEPHrine HCL (1:10,000) 1 MG/10 ML SYRINGE ONE (17:37)
[2017-07-11] MEDS ORDERED: GADODIAMIDE PF 287 MG/ML 20 ML VIAL (for RAD MRI) IVCONTRAST ONE (19:00)
--- NOTE | 2017-07-11 19:47 | RADRPT ---
EXAM DATE/TIME: 07/11/2017 18:16 [facility] COMPARISON: US CAROTID ARTERIES, July 09, 2017, 17:50. INDICATIONS : CVA. MEDICAL HISTORY : Hypertension. SURGICAL HISTORY : None. ENCOUNTER: Subsequent ACUITY: 3 day PAIN SCORE: 0/10 LOCATION: head. TECHNIQUE: Multiplanar, multisequence MRI of the brain was performed without contrast. FINDINGS: There is a subacute infarct involving the medial occipital and temporal lobe on the left. They are re mote lacunar infarcts in the basal ganglia and subacute deep white matter infarct on the right measur ing up to about 1.5 cm in diameter. This has faintly increased signal in diffusion weighted images. C hronic white matter ischemic changes present. No mass effect or shift. No hydrocephalus. No abnormal extra-axial fluid collections. CONCLUSION: 1. Subacute infarct involving left medial occipital lobe and temporal lobe. 2. Subacute to old infarct deep white matter on the right measuring up to 1.5 cm. Remote lacunar infa rcts in the basal ganglia. 3. Chronic white matter ischemic changes in the periventricular region and in the brainstem. Chip Patton MD on July 11, 2017 at 19:38 Board Certified Radiologist. This report was verified electronically.
--- NOTE | 2017-07-11 19:53 | RADRPT ---
EXAM DATE/TIME: 07/11/2017 18:16 [facility] COMPARISON: No previous studies available for comparison. INDICATIONS : CVA. MEDICAL HISTORY : Hypertension. SURGICAL HISTORY : None. ENCOUNTER: Subsequent ACUITY: 3 day PAIN SCORE: 0/10 LOCATION: head. Please note a normal MRA of the brain does not entirely exclude the possibility of a small aneurysm, nor the possibility of distal intracranial vessel disease. TECHNIQUE: 3D time of flight MRA was performed. Source images, multiplanar STS MIP, and 3D volume MIP reconstru ctions were reviewed. FINDINGS: Exam is degraded by motion artifact. There is a suspected occlusion of the left posterior cerebral ar claudia. Probable high-grade stenosis of right posterior vertebral artery and likely stenosis of the dis cj right middle cerebral artery branches. Basilar artery, left middle cerebral artery and enters thr ough arteries are patent. There is some irregularity in the distal internal carotid arteries. CONCLUSION: 1. Exam degraded by motion artifact. Probable occlusion proximal left posterior cerebral artery and s tenoses right posterior cerebral and distal right middle cerebral branches. Chip Patton MD on July 11, 2017 at 19:47 Board Certified Radiologist. This report was verified electronically.
--- NOTE | 2017-07-11 20:24 | RADRPT ---
EXAM DATE/TIME: 07/11/2017 18:16 [facility] COMPARISON: MRA BRAIN W/O CONTRAST, July 11, 2017, 18:16. INDICATIONS : Stenosis. CONTRAST: 20 cc Omniscan (gadodiamide) IV MEDICAL HISTORY : Hypertension. SURGICAL HISTORY : None. ENCOUNTER: Subsequent ACUITY: 3 day PAIN SCORE: 0/10 LOCATION: neck. Percent stenosis is calculated using the diameter of the stenotic region over the diameter of the nor mal distal internal carotid artery. TECHNIQUE: Bolus infused MRA of the extracranial circulation was performed using a neurovascular coil. Post pro cessing was performed including rotating subvolume maximum intensity projections of each carotid rosalina ry, rotating full volume maximum intensity projections of both carotid arteries, sagittal and coronal sliding thin slab reformations of each carotid artery, and left oblique sliding thin slab reformatio n through the aortic arch to include the origin of the arch branch vessels. FINDINGS: Great vessel origins are patent. There is mild atherosclerotic irregularity of the proximal internal carotid arteries. No hemodynamically significant stenosis identified in the carotid arteries. Both ve rtebral arteries are patent in the neck. CONCLUSION: 1. Negative for hemodynamically significant stenosis in the carotid arteries. Minimal atherosclerotic irregularity. Both vertebral arteries patent in the neck. Great vessel origins are patent. Chip Patton MD on July 11, 2017 at 20:19 Board Certified Radiologist. This report was verified electronically.
[2017-07-11] MEDS: ATORVASTATIN 10 MG TAB PO SCH (21:29)
[2017-07-12] VITALS (24 sets, daily range): BP systolic 140–148; BP diastolic 88–99; PULSE 74–104; RESP 18–20; TEMP 97.4–98.7; O2SAT 92–97
[2017-07-12] MEDS: HEPARIN SODIUM - SQ 10,000 UNITS/ML VIAL SQ SCH ×4 (00:43→23:51)
[2017-07-12] MEDS: INSULIN ASPART SUPPLEMENTAL SCALE SQ SCH ×4 (07:00→21:00)
[2017-07-12] MEDS: HYDROCHLOROTHIAZIDE 25 MG TAB PO SCH (09:10)
[2017-07-12] MEDS: LACTOBACILLUS ACIDOPHILUS TAB PO SCH ×2 (09:10→20:35)
[2017-07-12] MEDS: NICOTINE 14 MG/24 HR PATCH T-DERMAL SCH (09:10)
[2017-07-12] MEDS: ASPIRIN EC 81 MG TABEC PO SCH (09:10)
--- NOTE | 2017-07-12 10:02 | HHI.PR ---
Subjective Remarks Follow-up hypertensive emergency/metabolic encephalopathy/acute mood disorder/ subacute infarct in the left occipital lobe 07/09/17-patient seen and examined, alert and oriented 1, confused but pleasant 07/10/17-patient seen and examined, alert and oriented 2, afebrile. BP. Denies any complication with by mouth intake this morning 07/11/17-patient seen and examined, appear much more alert today. No acute event overnight. 07/12/17-patient seen and examined, no acute event overnight. Stable. Alert and oriented 3. Case discussed with case management regarding discharge disposition Objective Vitals Vital Signs Date Time Temp Pulse Resp B/P (MAP) Pulse Ox O2 Delivery O2 Flow Rate FiO2 07/12/17 04:00 98.2 89 20 148/91 (110) 96 07/12/17 04:00 89 07/12/17 03:00 76 07/12/17 02:00 78 07/12/17 01:00 76 07/12/17 00:00 97.8 76 20 141/88 (105) 97 07/12/17 00:00 74 07/11/17 23:00 84 07/11/17 22:00 78 07/11/17 21:00 78 07/11/17 20:00 78 07/11/17 20:00 98.5 80 20 187/117 (140) 97 07/11/17 18:01 74 07/11/17 17:00 76 07/11/17 16:00 76 07/11/17 15:30 97.5 79 18 151/98 (115) 97 07/11/17 15:00 81 07/11/17 14:01 78 07/11/17 13:00 92 07/11/17 12:01 97.6 81 18 165/95 (118) 07/11/17 11:00 87 I/O 07/11/17 07/11/17 07/11/17 07/12/17 07/12/17 07/12/17 07:00 15:00 23:00 07:00 15:00 23:00 Intake Total 80 ml 530 ml 180 ml Output Total 300 ml Balance 80 ml 230 ml 180 ml Intake Oral 80 ml 480 ml 180 ml IV Total 50 ml Output Urine Total 300 ml # Voids 3 2 4 # Bowel Movements 0 0 Result Diagram: 07/08/17209907/08/172099 Imaging Last Impressions Neck Magnetic Resonance Angiography 07/11/17 0000 Signed Impressions: Service Date/Time: Tuesday, July 11, 2017 18:16 - CONCLUSION: 1. Negative for hemodynamically significant stenosis in the carotid arteries. Minimal atherosclerotic irregularity. Both vertebral arteries patent in the neck. Great vessel origins are patent. Chip Patton MD Head Magnetic Resonance Angiography 07/11/17 Signed Impressions: Service Date/Time: Tuesday, July 11, 2017 18:16 - CONCLUSION: 1. Exam degraded by motion artifact. Probable occlusion proximal left posterior cerebral artery and stenoses right posterior cerebral and distal right middle cerebral branches. Chip Patton MD Brain MRI 07/11/17 Signed Impressions: Service Date/Time: Tuesday, July 11, 2017 18:16 - CONCLUSION: 1. Subacute infarct involving left medial occipital lobe and temporal lobe. 2. Subacute to old infarct deep white matter on the right measuring up to 1.5 cm. Remote lacunar infarcts in the basal ganglia. 3. Chronic white matter ischemic changes in the periventricular region and in the brainstem. Chip Patton MD Carotid Artery Ultrasound 07/09/17 0000 Signed Impressions: Service Date/Time: Sunday, July 09, 2017 17:50 - CONCLUSION: Abnormal carotid Doppler. Scattered calcific plaque is evident. MR angiography or CT angiography would be of benefit. Luis Hua MD FACR Lower Extremity Ultrasound 07/08/17 Signed Impressions: Service Date/Time: Saturday, July 08, 2017 21:24 - CONCLUSION: Negative exam with no evidence of deep venous thrombosis. Zander Lucas MD Head CT 07/08/17 0000 Signed Impressions: Service Date/Time: Saturday, July 08, 2017 21:17 - CONCLUSION: 1. Low attenuation edema involving the left occipital lobe and deep white matter of the left temporal and parietal lobes is consistent with subacute infarction. 2. No acute hemorrhage. 3. Old lacunar infarcts in right basal ganglia. Zander Lucas MD Objective Remarks GENERAL: NAD SKIN: Warm and dry. HEAD: Normocephalic. EYES: No scleral icterus. No injection or drainage. NECK: Supple, trachea midline. No JVD or lymphadenopathy. CARDIOVASCULAR: Regular rate and rhythm without murmurs, gallops, or rubs. RESPIRATORY: Breath sounds equal bilaterally. No accessory muscle use. GASTROINTESTINAL: Abdomen soft, non-tender, nondistended. MUSCULOSKELETAL: No cyanosis, or edema. BACK: Nontender without obvious deformity. No CVA tenderness. Procedures none A/P Problem List: (1) Stroke ICD Code: I63.9 - Cerebral infarction, unspecified Status: Acute (2) Hypertensive urgency ICD Code: I16.0 - Hypertensive urgency Status: Resolved (3) Acute adjustment disorder with depressed mood ICD Code: F43.21 - Adjustment disorder with depressed mood (4) Respiratory failure ICD Code: J96.90 - Respiratory failure, unspecified, unspecified whether with hypoxia or hypercapnia Status: Resolved (5) Cellulitis of left leg ICD Code: L03.116 - Cellulitis of left lower limb Assessment and Plan 57-year-old female with Toxic metabolic encephalopathy-resolved Head CT with finding of subacute infarct in left occipital lobe EEG noted and review Subacute infarct in the left occipital lobe Treated per stroke protocol Neuro consultation appreciated Treated with aspirin, Lipitor NIHSS, neuro check, monitor on telemetry s/p permissive hypertension, IV Vasotec for SBP> to [address] noted and review with finding of subacute infarct in the left occipital lobe Carotid ultrasound noted brain MRI with finding of subacute infarct PT/OT consultation A1c 5.4, lipid profile 201 Hypertensive emergency Discontinue permissive hypertension Continue hydrochlorothiazide 25 mg by mouth daily Left lower extremity cellulitis Improving Continue current IV antibiotic Acute mood disorder Appreciate input from psychiatry who lifted Gudino act DVT prophylaxis: Bilateral SCDs Problem Qualifiers (1) Stroke: Qualified Codes: I63.9 - Cerebral infarction, unspecified Kirill Garcia MD Jul 12, 2017 10:02
--- NOTE | 2017-07-12 10:04 | HHI.DS ---
Discharge Summary Admission Date Jul 08, 2017 at 22:33 Discharge Date: Jul 12, 2017 Admitting Diagnosis stroke, hypertensive urgency (1) Stroke ICD Code: I63.9 - Cerebral infarction, unspecified Status: Acute (2) Hypertensive urgency ICD Code: I16.0 - Hypertensive urgency Status: Resolved (3) Acute adjustment disorder with depressed mood ICD Code: F43.21 - Adjustment disorder with depressed mood (4) Respiratory failure ICD Code: J96.90 - Respiratory failure, unspecified, unspecified whether with hypoxia or hypercapnia Status: Resolved (5) Cellulitis of left leg ICD Code: L03.116 - Cellulitis of left lower limb Procedures none Brief History - From Admission 57 years old female presented to the ED under Gudino act after she hasn't been taking care of herself, her roommate reported that the patient has not been getting out of bed not leaving her room not eating or drinking for the past month, patient was able to recognize her name and the place but not the time and in general she is very poor historian and not able to maintain any other information or history from her. She looks comfortable she denied any pain. EKG reviewed showed normal sinus rhythm. Most of the information obtained from ED document CBC/BMP: 07/08/17 2100 07/08/17 2100 Significant Findings Laboratory Tests Test 07/09/17 21:07 07/10/17 05:12 Cholesterol Level 267 MG/DL (120-200) LDL Cholesterol 201 MG/DL (0-99) HDL Cholesterol 37.9 MG/DL (40.0-60.0) PE at Discharge GENERAL: NAD SKIN: Warm and dry. HEAD: Normocephalic. EYES: No scleral icterus. No injection or drainage. NECK: Supple, trachea midline. No JVD or lymphadenopathy. CARDIOVASCULAR: Regular rate and rhythm without murmurs, gallops, or rubs. RESPIRATORY: Breath sounds equal bilaterally. No accessory muscle use. GASTROINTESTINAL: Abdomen soft, non-tender, nondistended. MUSCULOSKELETAL: No cyanosis, or edema. BACK: Nontender without obvious deformity. No CVA tenderness. Hospital Course Patient admitted secondary to toxic metabolic encephalopathy for which EEG was obtained and read as unremarkable, however patient has a finding of subacute infarct in the left occipital lobe and head CT scan. Neurology was consulted for workup for CVA and brain MRI from in ED diagnosis. She was started on aspirin and Lipitor. PT/OT were consulted. Permissive hypertension was allowed despite patient with admission of hypertensive emergency. Subsequently her blood pressure medications was reintroduced 2 days after admission with improvement of BP. Psychiatry was consulted for evaluation for acute mood disorder however patient's Gudino act was lifted. She was also started on IV antibiotic for left was 20 cellulitis with significant improvement. Patient conditions improved prior to discharge. She'll be discharged on 7 day course of by mouth Levaquin. Pt Condition on Discharge: Stable Discharge Disposition: Discharge Home Discharge Time: > 30 minutes Discharge Instructions Follow up Referrals: Neurology PCP Follow-up - 1 Week New Medications: Levofloxacin (Levaquin) 500 Mg Tablet 500 MG PO DAILY for Infection, #7 TAB [address] (Adult Aspirin EC Low Strength) 81 Mg Tabec 81 MG PO DAILY for Prevent Blood Clot, #30 TAB Atorvastatin (Lipitor) 10 Mg Tab 10 MG PO HS for Cholesterol Management, #30 TAB Continued Medications: Hydrochlorothiazide (Hctz) 25 Mg Tab 25 MG PO DAILY, #30 2 Refills Miscellaneous (No Current Meds) Misc Discontinued Medications: Hydrocodone-Acetaminophen (Lortab 5/500) 5 Mg/500 Mg Tab 1 TAB PO Q6HPRN, #30 0 Refills FOR PAIN Hydrocodone-Acetaminophen (Lortab 5/500) 5 Mg/500 Mg Tab 1 - 2 TAB PO Q6HPRN, #24 Kirill Garcia MD Jul 12, 2017 10:04
[2017-07-12] MEDS ORDERED: LIPI10TA PO (10:08)
[2017-07-12] MEDS ORDERED: LEVA500T20 PO (10:08)
[2017-07-12] MEDS ORDERED: ASPI-99 PO (10:08)
[2017-07-12] MEDS: LEVOFLOXACIN 250 MG PREMIX INJ 50 ML IV SCH (12:35)
[2017-07-12] MEDS: ATORVASTATIN 10 MG TAB PO SCH (20:35)
[2017-07-13] VITALS (11 sets, daily range): BP systolic 158–191; BP diastolic 91–111; PULSE 74–100; RESP 16–18; TEMP 97.9–98.5; O2SAT 95–97
[2017-07-13] MEDS: INSULIN ASPART SUPPLEMENTAL SCALE SQ SCH (07:00)
--- NOTE | 2017-07-13 09:30 | HHI.PR ---
Subjective Remarks Follow-up hypertensive emergency/metabolic encephalopathy/acute mood disorder/ subacute infarct in the left occipital lobe 07/09/17-patient seen and examined, alert and oriented 1, confused but pleasant 07/10/17-patient seen and examined, alert and oriented 2, afebrile. BP. Denies any complication with by mouth intake this morning 07/11/17-patient seen and examined, appear much more alert today. No acute event overnight. 07/12/17-patient seen and examined, no acute event overnight. Stable. Alert and oriented 3. Case discussed with case management regarding discharge disposition 07/13/17-patient seen and examined, no change, no acute event overnight, stable. Objective Vitals Vital Signs Date Time Temp Pulse Resp B/P (MAP) Pulse Ox O2 Delivery O2 Flow Rate FiO2 07/13/17 09:00 92 07/13/17 08:00 78 07/13/17 07:00 98.3 95 18 191/91 (124) 95 07/13/17 07:00 95 07/13/17 06:05 75 07/13/17 05:00 74 07/13/17 04:04 87 07/13/17 04:03 97.9 87 16 160/111 (127) 97 07/13/17 03:07 90 07/13/17 02:00 89 07/13/17 01:00 85 07/13/17 00:00 98.5 100 18 158/107 (124) 97 07/13/17 00:00 86 07/12/17 23:05 87 07/12/17 22:00 88 07/12/17 21:00 87 07/12/17 20:00 98.7 100 18 143/99 (114) 97 07/12/17 20:00 100 07/12/17 19:00 99 07/12/17 18:00 100 07/12/17 17:00 102 07/12/17 16:01 89 07/12/17 16:00 97.7 89 18 146/94 (111) 96 07/12/17 15:00 86 07/12/17 14:00 86 07/12/17 13:00 86 07/12/17 12:10 86 07/12/17 12:00 98.5 86 18 142/92 (109) 93 07/12/17 11:00 104 07/12/17 10:00 94 I/O 07/12/17 07/12/17 07/12/17 07/13/17 07/13/17 07/13/17 07:00 15:00 23:00 07:00 15:00 23:00 Intake Total 180 ml 480 ml 420 ml Balance 180 ml 480 ml 420 ml Intake Oral 180 ml 480 ml 420 ml # Voids 4 2 3 # Bowel Movements 0 0 Imaging Last Impressions Neck Magnetic Resonance Angiography 07/11/17 Signed Impressions: Service Date/Time: Tuesday, July 11, 2017 18:16 - CONCLUSION: 1. Negative for hemodynamically significant stenosis in the carotid arteries. Minimal atherosclerotic irregularity. Both vertebral arteries patent in the neck. Great vessel origins are patent. Chip Patton MD Head Magnetic Resonance Angiography 07/11/17 Signed Impressions: Service Date/Time: Tuesday, July 11, 2017 18:16 - CONCLUSION: 1. Exam degraded by motion artifact. Probable occlusion proximal left posterior cerebral artery and stenoses right posterior cerebral and distal right middle cerebral branches. Chip Patton MD Brain MRI 07/11/17 Signed Impressions: Service Date/Time: Tuesday, July 11, 2017 18:16 - CONCLUSION: 1. Subacute infarct involving left medial occipital lobe and temporal lobe. 2. Subacute to old infarct deep white matter on the right measuring up to 1.5 cm. Remote lacunar infarcts in the basal ganglia. 3. Chronic white matter ischemic changes in the periventricular region and in the brainstem. Chip Patton MD Carotid Artery Ultrasound 07/09/17 Signed Impressions: Service Date/Time: Sunday, July 09, 2017 17:50 - CONCLUSION: Abnormal carotid Doppler. Scattered calcific plaque is evident. MR angiography or CT angiography would be of benefit. Luis Hua MD FACR Lower Extremity Ultrasound 07/08/17 0000 Signed Impressions: Service Date/Time: Saturday, July 08, 2017 21:24 - CONCLUSION: Negative exam with no evidence of deep venous thrombosis. Zander Lucas MD Head CT 07/08/17 Signed Impressions: Service Date/Time: Saturday, July 08, 2017 21:17 - CONCLUSION: 1. Low attenuation edema involving the left occipital lobe and deep white matter of the left temporal and parietal lobes is consistent with subacute infarction. 2. No acute hemorrhage. 3. Old lacunar infarcts in right basal ganglia. Zander Lucas MD Objective Remarks GENERAL: NAD SKIN: Warm and dry. HEAD: Normocephalic. EYES: No scleral icterus. No injection or drainage. NECK: Supple, trachea midline. No JVD or lymphadenopathy. CARDIOVASCULAR: Regular rate and rhythm without murmurs, gallops, or rubs. RESPIRATORY: Breath sounds equal bilaterally. No accessory muscle use. GASTROINTESTINAL: Abdomen soft, non-tender, nondistended. MUSCULOSKELETAL: No cyanosis, or edema. BACK: Nontender without obvious deformity. No CVA tenderness. Procedures none A/P Problem List: (1) Stroke ICD Code: I63.9 - Cerebral infarction, unspecified Status: Acute (2) Hypertensive urgency ICD Code: I16.0 - Hypertensive urgency Status: Resolved (3) Acute adjustment disorder with depressed mood ICD Code: F43.21 - Adjustment disorder with depressed mood (4) Respiratory failure ICD Code: J96.90 - Respiratory failure, unspecified, unspecified whether with hypoxia or hypercapnia Status: Resolved (5) Cellulitis of left leg ICD Code: L03.116 - Cellulitis of left lower limb Assessment and Plan 57-year-old female with Toxic metabolic encephalopathy-resolved Head CT with finding of subacute infarct in left occipital lobe EEG noted and review Subacute infarct in the left occipital lobe Treated per stroke protocol Neuro consultation appreciated Treated with aspirin, Lipitor NIHSS, neuro check, monitor on telemetry s/p permissive hypertension, IV Vasotec for SBP> to [address] noted and review with finding of subacute infarct in the left occipital lobe Carotid ultrasound noted brain MRI with finding of subacute infarct PT/OT consultation A1c 5.4, lipid profile 201 Hypertensive emergency-resolved Continue hydrochlorothiazide 25 mg by mouth daily Left lower extremity cellulitis Improving Continue by mouth Levaquin Acute mood disorder Appreciate input from psychiatry who lifted Gudino act DVT prophylaxis: Bilateral SCDs Problem Qualifiers (1) Stroke: Qualified Codes: I63.9 - Cerebral infarction, unspecified Kirill Garcia MD Jul 13, 2017 09:30
== END 2017-07-13 10:30 | disposition home or self-care (01) | DRG 64 ==
LOC: NEDAMB 20:36 → NEDA 22:33 → HCIS 07-09 02:32
PROVIDERS: ADMIT Hospitalist; ATTEND Hospitalist
DX: I63.9 Cerebral infarction, unspecified (principal); G93.6 Cerebral edema; J96.90 Respiratory failure, unspecified, unspecified whether with hypoxia or hypercapnia; G92 Toxic encephalopathy; I16.1 Hypertensive emergency; L03.116 Cellulitis of left lower limb; H53.40 Unspecified visual field defects; I10 Essential (primary) hypertension; F39 Unspecified mood [affective] disorder; F43.21 Adjustment disorder with depressed mood; Z72.0 Tobacco use; Z88.0 Allergy status to penicillin
CPT/HCPCS: 70450; 70544; 70548; 70551; 80053; 80061; 80307; 81001; 82140; 82550; 82948; 83036; 85025; 93005; 93306; 93880; 93971; 95819; 96374; A9579; J0171; J0360; J0461; J1644; J1956; J7030; P9612

== ENCOUNTER 2017-07-25 08:47 | Emergency (ER) | payer SELFPAY ==
[~2017-07-25] VITALS: Ht 152.4 cm; Wt 82.0 kg
[~2017-07-25 08:47] MED LIST changes: +ASPI-99 PO; +LEVA500T20 PO; +LIPI10TA PO; -LORT5TAB PO
[2017-07-25 08:55] VITALS: BP 189/82; PULSE 70; RESP 18; TEMP 98.1; O2SAT 98
[2017-07-25 09:34] LABS: BACTERIA, URINE RARE /hpf; BLOOD, URINE NEG (NEG); GLUCOSE,URINE NEG (NEG); KETONE, URINE NEG (NEG); NITRITE,URINE NEG (NEG); PH, URINE 5.5 (5.0-8.5); SQUAMOUS EPITHELIAL CELL URINE <1 /hpf (0-5); URINE COLOR YELLOW (YELLW/STRAW)
[2017-07-25 09:37] LABS: COMMENT (UR) CATH-CULTURE IND; CULTURE IF INDICATED CATH CULTURE IND
[2017-07-25 09:38] LABS: AUTOMATED NEUTROPHIL # 4.4 TH/MM3 (1.8-7.7); BASOPHIL % 0.5 % (0.0-2.0); EOSINOPHIL # 0.3 TH/MM3 (0-0.4); EOSINOPHIL % 3.2 % (0.0-4.0); HEMATOCRIT 42.1 % (35.0-46.0); HEMO FLAGS DIFF FINAL; LYMPH % 37.5 % (9.0-44.0); LYMPHOCYTE # 3.4 TH/MM3 (1.0-4.8); MEAN CELL VOLUME 85.1 FL (80.0-100.0); MEAN CORPUSCULAR HEMOGLOBIN 27.2 PG (27.0-34.0); MEAN CORPUSCULAR HGB CONC 31.9 % (32.0-36.0); MONO % 11.2 % (0.0-8.0); NEUT % 47.6 % (16.0-70.0); PLATELET COUNT 314 TH/MM3 (150-450); RED BLOOD COUNT 4.94 MIL/MM3 (4.00-5.30); RED CELL DISTRIBUTION WIDTH 13.3 % (11.6-17.2); WHITE BLOOD COUNT 9.1 TH/MM3 (4.0-11.0)
[2017-07-25 09:47] LABS: ANION GAP 8 MEQ/L (5-15); AST (GOT) 18 U/L (15-37); BICARBONATE 23.5 MEQ/L (21.0-32.0); BLOOD UREA NITROGEN 19 MG/DL (7-18); CHLORIDE 107 MEQ/L (98-107); GLOMERULAR FILTRATION RATE 49 ML/MIN (>89); POTASSIUM 3.8 MEQ/L (3.5-5.1); SODIUM (NA) 138 MEQ/L (136-145)
[2017-07-25 09:48] LABS: ALT (GPT) 16 U/L (10-53)
[2017-07-25 09:50] LABS: ALKALINE PHOSPHATASE 91 U/L (45-117); TOTAL BILIRUBIN ADULT 0.5 MG/DL (0.2-1.0)
--- NOTE | 2017-07-25 10:08 | RADRPT ---
EXAM DATE/TIME: 07/25/2017 09:48 [facility] COMPARISON: MRI BRAIN W/O CONTRAST, July 11, 2017, 18:16. CT BRAIN W/O CONTRAST, July 08, 2017, 21:17. INDICATIONS : Altered mental status. RADIATION DOSE: 56.35 CTDIvol (mGy) MEDICAL HISTORY : Stroke. Hypertension. SURGICAL HISTORY : None. ENCOUNTER: Initial ACUITY: 1 day PAIN SCALE: 0/10 LOCATION: cranial TECHNIQUE: Multiple contiguous axial images were obtained of the head. Using automated exposure control and adj ustment of the mA and/or kV according to patient size, radiation dose was kept as low as reasonably a chievable to obtain optimal diagnostic quality images. DICOM format image data is available electro nically for review and comparison. FINDINGS: CEREBRUM: The examination demonstrates an area of decreased attenuation involving the medial aspect of the left temporal lobe and extending down to the uncus. The amount of edema associated with this appears some what less than seen on previous dated 07/08/17. There is no evidence of hemorrhage within this. Note i s also made of an old lacunar infarct seen within the right basal ganglia. The ventricles are normal in size and configuration. No extra-axial fluid collections are seen. POSTERIOR FOSSA: The cerebellum and brainstem are intact. The 4th ventricle is midline. The cerebellopontine angle i s unremarkable. EXTRACRANIAL: The visualized portion of the orbits is intact. SKULL: The calvaria is intact. No evidence of skull fracture. CONCLUSION: 1. There is decreased attenuation involving the medial aspect of the left temporal lobe. Findings wou ld be most consistent with an area of subacute cortical infarct. This appears less prominent than see n on previous CT and previous MRI examination. 2. There is an area of encephalomalacia involving the right basal ganglia and caudate. This is simila r in appearance to previous exam. 3. No findings to indicate acute intraparenchymal hemorrhage are seen. Kenny Hua MD on July 25, 2017 at 10:04 Board Certified Radiologist. This report was verified electronically.
[2017-07-25 10:13] VITALS: BP 167/80; PULSE 64; RESP 18; O2SAT 98
[2017-07-25] MEDS ORDERED: SODIUM CHLORIDE 0.9% FLUSH 5 ML FLUSH IV FLUSH PRN (10:15)
--- NOTE | 2017-07-25 10:54 | PD ---
HPI Chief Complaint: Medical Clearance Time Seen by Provider: 08:58 Travel History International Travel<30 days: No Contact w/Intl Traveler<30days: No Traveled to known affect area: No History of Present Illness HPI So 57 year-old woman who presents to the emergency department brought by EMS because of reported failure to thrive. Apparently her boyfriend/roommate called in on skin she's been sitting in a chair and has been getting out. She was brought in for similar symptoms recently was diagnosed with a subacute stroke. Been home for about 12 days or so. Patient has no complaints. Denies any recent illness or injury. History Past Medical History Narrative Medical Asthma Hypertension Recent stroke Tetanus Vaccination: Unknown Menopausal: Yes Social History Alcohol Use: No Tobacco Use: Yes (1.5 PPD) Allergies-Medications (Allergen,Severity, Reaction): Coded Allergies: penicillin G (Unverified Allergy, Severe, HIVES, 07/25/17) Reported Meds & Prescriptions Reported Meds & Active Scripts Active Levaquin (Levofloxacin) 500 Mg Tablet 500 Mg PO DAILY Adult Aspirin EC Low Strength (Aspirin) 81 Mg Tabec 81 Mg PO DAILY Lipitor (Atorvastatin Calcium) 10 Mg Tab 10 Mg PO HS Hctz (Hydrochlorothiazide) 25 Mg Tab 25 Mg PO DAILY Reported No Current Meds (Miscellaneous Medication) Misc Review of Systems Except as stated in HPI: all other systems reviewed are Neg Physical Exam Narrative GENERAL: Well-appearing 57 year-old woman, no acute distress. SKIN: Focused skin assessment warm/dry. HEAD: Atraumatic. Normocephalic. EYES: Pupils equal and round. No scleral icterus. No injection or drainage. ENT: No nasal bleeding or discharge. Mucous membranes pink and moist. NECK: Trachea midline. No JVD. CARDIOVASCULAR: Regular rate and rhythm. No murmur appreciated. RESPIRATORY: No accessory muscle use. Clear to auscultation. Breath sounds equal bilaterally. GASTROINTESTINAL: Abdomen soft, non-tender, nondistended. Hepatic and splenic margins not palpable. MUSCULOSKELETAL: No obvious deformities. No clubbing. No cyanosis. No edema. NEUROLOGICAL: Awake and alert. No obvious cranial nerve deficits. Motor grossly within normal limits. Normal speech. PSYCHIATRIC: Bizarre, little bit confused. Appropriate mood and affect; insight and judgment fair. Data Data Last Documented VS Vital Signs Date Time Temp Pulse Resp B/P (MAP) Pulse Ox O2 Delivery O2 Flow Rate FiO2 07/25/17 10:13 64 18 167/80 (109) 98 Room Air 07/25/17 08:55 98.1 Orders Orders Complete Blood Count With Diff (07/25/17 09:12) Comprehensive Metabolic Panel (07/25/17 09:12) Cath For Specimen (07/25/17 09:12) Urinalysis - C+S If Indicated (07/25/17 09:12) Ct Brain W/O Iv Contrast(Rout) (07/25/17 ) Electrocardiogram (07/25/17 ) Urine Culture (07/25/17 09:20) Sodium Chloride 0.9% Flush (Ns Flush) (07/25/17 10:15) Sodium Chlor 0.9% 1000 Ml Inj (Ns 1000 M (07/25/17 10:12) Labs Laboratory Tests Test 07/25/17 09:20 White Blood Count 9.1 TH/MM3 Red Blood Count 4.94 MIL/MM3 Hemoglobin 13.4 GM/DL Hematocrit 42.1 % Mean Corpuscular Volume 85.1 FL Mean Corpuscular Hemoglobin 27.2 PG Mean Corpuscular Hemoglobin Concent 31.9 % Red Cell Distribution Width 13.3 % Platelet Count 314 TH/MM3 Mean Platelet Volume 6.9 FL Neutrophils (%) (Auto) 47.6 % Lymphocytes (%) (Auto) 37.5 % Monocytes (%) (Auto) 11.2 % Eosinophils (%) (Auto) 3.2 % Basophils (%) (Auto) 0.5 % Neutrophils # (Auto) 4.4 TH/MM3 Lymphocytes # (Auto) 3.4 TH/MM3 Monocytes # (Auto) 1.0 TH/MM3 Eosinophils # (Auto) 0.3 TH/MM3 Basophils # (Auto) 0.0 TH/MM3 CBC Comment DIFF FINAL Differential Comment Urine Color YELLOW Urine Turbidity CLEAR Urine pH 5.5 Urine Specific [place] 1.029 Urine Protein 30 mg/dL Urine Glucose (UA) NEG mg/dL Urine Ketones NEG mg/dL Urine Occult Blood NEG Urine Nitrite NEG Urine Bilirubin NEG Urine Urobilinogen 2.0 MG/DL Urine Leukocyte Esterase SMALL Urine RBC 7 /hpf Urine WBC 11 /hpf Urine Squamous Epithelial Cells <1 /hpf Urine Bacteria RARE /hpf Urine Yeast (Budding) FEW Microscopic Urinalysis Comment CATH-CULTURE IND Blood Urea Nitrogen 19 MG/DL Creatinine 1.14 MG/DL Random Glucose 78 MG/DL Total Protein 7.7 GM/DL Albumin 2.9 GM/DL Calcium Level 9.5 MG/DL Alkaline Phosphatase 91 U/L Aspartate Amino Transf (AST/SGOT) 18 U/L Alanine Aminotransferase (ALT/SGPT) 16 U/L Total Bilirubin 0.5 MG/DL Sodium Level 138 MEQ/L Potassium Level 3.8 MEQ/L Chloride Level 107 MEQ/L Carbon Dioxide Level 23.5 MEQ/L Anion Gap 8 MEQ/L Estimat Glomerular Filtration Rate 49 ML/MIN MDM Medical Decision Making Medical Screen Exam Complete: Yes Emergency Medical Condition: Yes Interpretation(s) LABS: CBC is unremarkable. CMP is unremarkable. UA was some trace pyuria Differential Diagnosis UTI, adverse effects of stroke, other Narrative Course Is a 57 year-old woman presents to the emergency department because of reported failure to thrive. She apparently is been sitting in a chair and hasn't really gotten out. She's had recent subacute strokes and cognitive impairment thought to be related to strokes. No real acute complaint. Urine does show what may be some UTI. We'll place her on some antibiotics. Remainder of her workup appears negative. Reviewed case management notes from her previous admission. Looks like home health was never set up. I think she would benefit from that. We'll order home health, will do [id number]. Diagnosis Primary Impression: Major neurocognitive disorder due to vascular disease, without behavioral disturbance, severe Additional Instructions: Follow-up with home health as discussed. Follow-up with your primary physician. Return to the emergency department for any new or worsening symptoms. Med/Other Pt SpecificInfo: No Change to Meds Disposition: 01 DISCHARGE HOME Condition: Stable Arsalan Frye MD Jul 25, 2017 10:54
--- NOTE | 2017-07-25 11:03 | HHI.FF ---
Face to Face Verification Diagnosis: (1) Major neurocognitive disorder due to vascular disease, without behavioral disturbance, severe Physical Therapy Order: Evaluate and Treat Occupational Therapy Order: Evaluate and Treat, Improve ADL Home Health Nursing Order: Medical education Signs/symptoms of disease process Nursing assessment with vital signs Segment Producer Order: To Evaluate: Living conditions/environment, Support services Order: To Provide: Long range planning, Community services I have seen patient Jovita Turcios on 07/25/17. My clinical findings support the need for the requested home health care services because: Ltd mobility - disease progression Limited ability to care for self Need for psychosocial assistance I certify that my clinical findings support that this patient is homebound because: Unsteady gait/balance Unsafe to leave home unassisted Unable to use public transportation Arsalan Frye MD Jul 25, 2017 11:03
[2017-07-25] MEDS: SODIUM CHLOR 0.9% 1000 ML INJ 1,000 ML IV SCH ×2 (11:28→11:30)
--- NOTE | 2017-07-25 11:31 | HHI.FF ---
Face to Face Verification Diagnosis: (1) Major neurocognitive disorder due to vascular disease, without behavioral disturbance, severe Home Health Nursing Order: Medical education Signs/symptoms of disease process Nursing assessment with vital signs Access Services Librarian Order: To Evaluate: Living conditions/environment, Support services Order: To Provide: Long range planning, Community services I have seen patient Jovita Turcios on 07/25/17. My clinical findings support the need for the requested home health care services because: Limited ability to care for self Need for psychosocial assistance Impaired cognition/judgement I certify that my clinical findings support that this patient is homebound because: Unsafe to leave home unassisted Unable to use public transportation Arsalan Frye MD Jul 25, 2017 11:30
--- NOTE | 2017-07-25 20:38 | EKG ---
Date Performed: 07/25/2017 Time Performed: 09:38:40 PTAGE: 57 years EKG: Sinus rhythm NORMAL ECG PREVIOUS TRACING : 07/08/2017 21.51 Compared to prior tracing no significant change DOCTOR: Abdoul To Interpretating Date/Time 07/25/2017 20:37:39
== END 2017-07-25 12:49 | disposition home or self-care (01) ==
LOC: NEPE 08:47
DX: R62.7 Adult failure to thrive (principal); B37.49 Other urogenital candidiasis; I10 Essential (primary) hypertension; F17.200 Nicotine dependence, unspecified, uncomplicated; Z86.73 Personal history of transient ischemic attack (TIA), and cerebral infarction without residual deficits
CPT/HCPCS: 70450; 80053; 81001; 85025; 87086; 93005; 99284; P9612; 87106; J7030